=== PATIENT | male | born 1990 | race Two or more races ===

== ENCOUNTER 2017-08-07 14:02 | Emergency (ER) | payer OTHER ==
[~2017-08-07] VITALS: Ht 165.1 cm; Wt 78.5 kg
[2017-08-07 14:26] VITALS: BP 148/89
== END 2017-08-07 15:08 | disposition home or self-care (01) ==
LOC: ER 14:06
DX: R05 Cough (principal); R09.81 Nasal congestion; J00 Acute nasopharyngitis [common cold]; K21.9 Gastro-esophageal reflux disease without esophagitis
CPT/HCPCS: A4606; Z7610